=== PATIENT | female | born 1980 | race Caucasian/White ===

== ENCOUNTER 2017-04-30 19:36 | Emergency (ER) | payer MEDICAID ==
[~2017-04-30] VITALS: Ht 154.9 cm; Wt 68.0 kg
[~2017-04-30 19:36] MED LIST: FERR27TA PO; PREN1TAB49 PO
[2017-04-30 19:40] VITALS: Ht 154.9 cm; Wt 68.0 kg
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
--- NOTE | 2017-04-30 21:39 | RADRPT ---
PROCEDURE: CT Brain without. CLINICAL INDICATION: Headache. TECHNIQUE: A CT of the brain was performed on multidetector high-resolution CT scanner utilizing a xial sections from the skull base through the vertex without contrast. The scan was reviewed in sof t tissue brain and high frequency resolution bone algorithm windows. Images were reviewed on a high -resolution PACS workstation. One or more the following does reduction techniques were utilized: Aut omated exposure control, adjustment of the mA/ or kV according to patient's size, or use of iterativ e reconstruction technique. The exam CTDI = 43.95 mGy and the DLP = 720.23 mGy-cm. COMPARISON: None available. FINDINGS: The ventricles and sulci are age-appropriate. There is no intracranial hemorrhage, mass effect or mi dline shift. No abnormal intra-axial or extra-axial fluid collections are seen. The terry/white nelsy er differentiation is preserved. No acute skull abnormality is noted. The visualized paranasal sinus es are essentially clear. IMPRESSION: 1. No acute intracranial hemorrhage, transcortical infarction or mass effect. RPTAT: HFN .Mary Holloway MD, MD Date Time Electronically viewed and signed by .Mary Holloway MD, MD on 04/30/2017 21:38 .N/
--- NOTE | 2017-04-30 21:42 | RADRPT ---
PROCEDURE: CT cervical spine without contrast CLINICAL INDICATION: Trauma. Neck pain. TECHNIQUE: CT scan of the cervical spine [facility] was administered. Coronal and sagittal reformatted images were obtained from th e axial source images. Images were reviewed on a high-resolution PACS workstation. One or more the f ollowing does reduction techniques were utilized: Automated exposure control, adjustment of the mA/ or kV according to patient's size, or use of iterative reconstruction technique. Exam CTDI = 22.14 m Gy and the DLP = 437.05 mGy-cm. COMPARISON: None available. FINDINGS: There is reversal of normal cervical lordosis centered at C4-C5. Alignment remains intact. No acut e fracture or dislocation is seen. The vertebral body heights and disk spaces are preserved. No sig nificant spinal canal or foraminal stenosis is noted. No mass, hematoma, or other soft tissue abnor mality is seen. IMPRESSION: 1. Reversal of normal cervical lordosis centered at C4-C5. 2. No acute fracture or traumatic subluxation. RPTAT: HFN .Mary Holloway MD, MD Date Time Electronically viewed and signed by .Mary Holloway MD, MD on 04/30/2017 21:42 .N/
--- NOTE | 2017-04-30 22:00 | RADRPT ---
PROCEDURE: LEFT WRIST X-RAY CLINICAL INDICATION: Joint swelling and pain TECHNIQUE: 4 views of the left wrist were obtained. COMPARISON: None FINDINGS: There is no evidence of acute fracture or dislocation of the visualized osseous structures of the le ft wrist. Bony mineralization and alignment are unremarkable. Joint spaces are preserved. No signif icant soft tissue swelling. IMPRESSION: 1. No evidence of acute fracture or dislocation of the left wrist. RPTAT: AAPP Physician Marco Date Time Electronically viewed and signed by Physician Marco on 04/30/2017 22:00 QUAN/
[2017-04-30] MEDS ORDERED: ACET500C5 PO (22:12)
[2017-04-30] MEDS ORDERED: CYCL-319 PO (22:12)
[2017-04-30] MEDS ORDERED: HYDR-906 PO (22:12)
[2017-04-30 22:42] VITALS: BP 115/66; PULSE 75; RESP 18; TEMP 98.9
== END 2017-04-30 22:42 | disposition home or self-care (01) ==
LOC: FTE 19:36
DX: S16.1XXA Strain of muscle, fascia and tendon at neck level, initial encounter (principal); S00.93XA Contusion of unspecified part of head, initial encounter; S39.012A Strain of muscle, fascia and tendon of lower back, initial encounter; S63.501A Unspecified sprain of right wrist, initial encounter; J45.909 Unspecified asthma, uncomplicated; R51 Headache; V49.40XA Driver injured in collision with unspecified motor vehicles in traffic accident, initial encounter
CPT/HCPCS: 70450; 72125; 73110; Z7502